=== PATIENT | female | born 1985 | race Caucasian/White ===

== ENCOUNTER 2019-10-04 01:54 | Emergency (ER) | payer SELFPAY ==
[2019-10-04 02:08] VITALS: BP 136/92; PULSE 101
--- NOTE | 2019-10-04 02:32 | EDM.PDOCBH ---
ED HPI GENERAL MEDICAL PROBLEM - General Chief Complaint: Drug or Alcohol Abuse Stated Complaint: purple color in hands and legs Time Seen by Provider: 10/04/19 02:21 Source of Information: Reports: Patient History Limitations: Reports: No Limitations - History of Present Illness INITIAL COMMENTS - FREE TEXT/NARRATIVE: The patient presents for mottling in her skin and swelling. She admits to doing meth and injecting it the past couple days and tonight she noticed some skin changes. She has some swelling in the left antecubital area with ecchymosis. She has some mottling in her skin in her arms and legs. She has no other complaints such as fever, chills, cough, chest pain or shortness of breath. 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 Other Musculoskeletal History: none Other Neuro History: anxiety Psychiatric History: Reports: PTSD Other Dermatologic History: none - Past Surgical History Other HEENT Surgeries/Procedures: migraines Other Female Surgeries/Procedures: above Social & Family History - Tobacco Use Smoking Status *Q: Current Every Day Smoker Years of Tobacco use: 20 Packs/Tins Daily: 0.5 - Recreational Drug Use Recreational Drug Use: Yes Drug Use in Last 12 Months: Yes Recreational Drug Type: Reports: Marijuana/Hashish, Methamphetamine ED ROS GENERAL - Review of Systems Review Of Systems: See Below Constitutional: Reports: No Symptoms HEENT: Reports: No Symptoms Respiratory: Reports: No Symptoms Cardiovascular: Reports: No Symptoms Endocrine: Reports: No Symptoms GI/Abdominal: Reports: No Symptoms : Reports: No Symptoms Musculoskeletal: Reports: Other (Ecchymosis and edema to the right AC area) Skin: Reports: Mottled ED EXAM, BEHAVIORAL HEALTH - Physical Exam Exam: See Below Exam Limited By: No Limitations General Appearance: Alert, No Apparent Distress Ears: Normal External Exam Nose: Normal Inspection Head: Atraumatic, Normocephalic Neck: Normal Inspection Respiratory/Chest: No Respiratory Distress, Lungs Clear, Normal Breath Sounds Cardiovascular: Regular Rate, Rhythm, No Edema, No Murmur GI/Abdominal: Soft, Non-Tender, No Organomegaly, No Mass Back Exam: Normal Inspection Extremities: Other (Ecchymosis and edema to the right AC region. Good sensation and pulses distally. Her extremities are cold.) COURSE, BEHAVIORAL HEALTH COMP - Course Vital Signs: Last Vital Signs Temp 96.9 F 10/04/19 02:05 Pulse 101 H 10/04/19 02:05 Resp 18 10/04/19 02:05 BP 136/92 H 10/04/19 02:05 Pulse Ox 100 10/04/19 02:05 Re-Assessment/Re-Exam: I feel she is just cold. She admits living in her truck. I will discharge her home. Departure - Departure Time of Disposition: 02:35 Disposition: Home, Self-Care 01 Condition: Good Clinical Impression: Methamphetamine use Traumatic hematoma of right upper arm Qualifiers: Encounter type: initial encounter Qualified Code(s): S40.021A - Contusion of right upper arm, initial encounter - Discharge Information *PRESCRIPTION DRUG MONITORING PROGRAM REVIEWED*: No *COPY OF PRESCRIPTION DRUG MONITORING REPORT IN PATIENT ROBERT: No Referrals: PCP,None [Primary Care Provider] - Additional Instructions: Try to stop using meth. If you need help call [facility] at [phone] to get some help. Try to keep warm tonight. Please return if you are worse such as more swelling, pain, fever or chills.
== END 2019-10-04 02:35 | disposition home or self-care (01) ==
LOC: JD.ED 01:54
DX: F15.90 Other stimulant use, unspecified, uncomplicated (principal); S40.021A Contusion of right upper arm, initial encounter; Z88.0 Allergy status to penicillin; F17.210 Nicotine dependence, cigarettes, uncomplicated; X58.XXXA Exposure to other specified factors, initial encounter
CPT/HCPCS: 99281; 99283

== ENCOUNTER 2022-04-18 21:43 | Emergency (ER) | payer OTHER ==
[2022-04-18 22:02] VITALS: BP 134/99; PULSE 107
== END 2022-04-18 23:20 | disposition home or self-care (01) ==
LOC: JD.ED 21:43
DX: S93.401A Sprain of unspecified ligament of right ankle, initial encounter (principal); I80.01 Phlebitis and thrombophlebitis of superficial vessels of right lower extremity; Z90.49 Acquired absence of other specified parts of digestive tract; Z87.891 Personal history of nicotine dependence; Z88.0 Allergy status to penicillin; X58.XXXA Exposure to other specified factors, initial encounter
CPT/HCPCS: 73610-26-RT; 73610-RT; 73630-26-RT; 73630-RT; 99283

== ENCOUNTER 2022-07-24 19:39 | Emergency (ER) | payer OTHER, MEDICAID ==
[2022-07-24 20:37] VITALS: BP 104/74; PULSE 76
[2022-07-24] MEDS ORDERED: Ketorolac 30 MG/ML SDV IM ONE (22:45)
== END 2022-07-24 23:36 | disposition home or self-care (01) ==
LOC: JD.ED 19:39
DX: S50.12XA Contusion of left forearm, initial encounter (principal); S64.8X2A Injury of other nerves at wrist and hand level of left arm, initial encounter; Z88.0 Allergy status to penicillin; W22.09XA Striking against other stationary object, initial encounter
CPT/HCPCS: 73090; 96372; 99283; J1885

== ENCOUNTER 2024-04-10 07:46 | Day surgery (SDC) | payer MEDICAID, OTHER ==
[~2024-04-10 07:46] MED LIST: Lidocaine 1% 2 ML ONE; Midazolam 1 MG/ML 2 ML SDV ONE; Phenazopyridine 95 MG Tab PO SCH; Propofol 200 MG/20 ML SDV ONE; Rocuronium 50 MG/5 ML Vial ONE; Sodium Chloride 0.9% 10 ML Syringe FLUSH PRN; Sodium Chloride 0.9% 10 ML Syringe FLUSH SCH; fentaNYL 250 MCG/5 ML SDV ONE
[2024-04-10] MEDS: Lactated Ringers 1,000 ML IV SCH (08:15)
[2024-04-10 08:51] LABS: ANION GAP 13.8 (5-15); BUN/CREATININE RATIO 15.7 (14-18); CALCIUM 8.9 mg/dL (8.5-10.1); CREATININE 0.7 mg/dL (0.55-1.02); EST CRCL DRUG DOSING (CG) 93.17 mL/min; POTASSIUM,K 3.8 mEq/L (3.5-5.1)
[2024-04-10 08:56] LABS: BASOPHILS ABSOLUTE AUTO 0.1 K/mm3 (0.0-0.2); BASOPHILS PERCENT AUTO 0.7 % (0.0-1.0); EOSINOPHILS ABSOLUTE AUTO 0.1 K/mm3 (0.0-0.4); EOSINOPHILS PERCENT AUTO 1.3 % (0.0-6.0); HEMATOCRIT 42.4 % (37.0-47.0); HEMOGLOBIN 14.8 gm/dl (12.0-16.0); IMMATURE GRAN ABSOLUTE AUTO 0.03 K/mm3 (0.00-0.05); IMMATURE GRAN PERCENT AUTO 0.4 % (0.0-0.4); LYMPHOCYTES ABSOLUTE AUTO 1.7 K/mm3 (1.0-4.8); LYMPHOCYTES PERCENT AUTO 24.4 % (24.0-44.0); MEAN CORPUSCULAR HEMOGLOBIN 31.7 pg (28.0-32.0); MEAN CORPUSCULAR HGB CONC 34.9 g/dl (32.0-36.0); MEAN CORPUSCULAR VOLUME 90.8 fl (83.0-99.0); MEAN PLATELET VOLUME 9.5 fl (9.4-12.3); MONOCYTES ABSOLUTE AUTO 0.6 K/mm3 (0.0-0.8); MONOCYTES PERCENT AUTO 8.2 % (0.0-8.0); NEUTROPHILS ABSOLUTE AUTO 4.6 K/mm3 (1.8-7.7); PLATELET COUNT,PLT 328 K/mm3 (150-400); RED BLOOD CELL COUNT 4.67 M/mm3 (4.10-5.30); WHITE BLOOD CELL COUNT,WBC 7.06 K/mm3 (3.9-11.3)
[2024-04-10] MEDS ORDERED: ceFAZolin 2 GM Vial ONE (09:50)
[2024-04-10] MEDS ORDERED: Dexamethasone 4 MG/ML 5 ML MDV ONE (09:54)
[2024-04-10] MEDS ORDERED: fentaNYL 100 MCG/2 ML SDV IVPUSH PRN (10:01)
[2024-04-10] MEDS ORDERED: HYDROmorphone 0.5 MG/0.5 ML Syringe IVPUSH PRN (10:01)
[2024-04-10] MEDS ORDERED: Ondansetron 4 MG/2 ML SDV IVPUSH PRN (10:01)
[2024-04-10] MEDS ORDERED: ePHEDrine 50 MG/ML SDV ONE (10:30)
[2024-04-10] MEDS: Lidocaine 1% with EPINEPHrine 1:100,000 20 ML MDV ONE (10:38)
[2024-04-10] MEDS ORDERED: HYDROmorphone 0.5 MG/0.5 ML Syringe ONE ×2 (10:43→10:58)
[2024-04-10] MEDS ORDERED: Rocuronium 50 MG/5 ML Vial ONE (10:59)
[2024-04-10] MEDS ORDERED: Lactated Ringers 1,000 ML IV ONE (11:00)
[2024-04-10] MEDS ORDERED: Ketorolac 30 MG/ML SDV ONE (11:01)
[2024-04-10] MEDS ORDERED: Ondansetron 4 MG/2 ML SDV ONE (11:01)
[2024-04-10] MEDS ORDERED: Sugammadex Sodium 200 MG/2 ML VIAL IV ONE (11:38)
[2024-04-10 12:36] VITALS: PULSE 61
[2024-04-10] MEDS: oxyCODONE 5 MG Tab PO PRN (13:39)
[2024-04-10 14:14] VITALS: BP 128/80
== END 2024-04-10 14:00 | disposition home or self-care (01) ==
LOC: JD.SDS 07:46
PROVIDERS: ATTEND Obstetrics & Gynecology
DX: D25.9 Leiomyoma of uterus, unspecified (principal); N72 Inflammatory disease of cervix uteri; N87.9 Dysplasia of cervix uteri, unspecified; F41.9 Anxiety disorder, unspecified; F17.210 Nicotine dependence, cigarettes, uncomplicated; F17.290 Nicotine dependence, other tobacco product, uncomplicated; Z79.899 Other long term (current) drug therapy
CPT/HCPCS: 36415; 58570; 80048; 85025; A9270; J0690; J1100; J1170; J1885; J2250; J2405; J2704; J3010; J3490; J7120; 00944